=== PATIENT | female | born 1975 | race Caucasian/White ===

== ENCOUNTER 2019-06-08 20:19 | Inpatient (IN) ==
--- NOTE | 2019-06-08 21:03 | ERNOTE ---
<Ivanna Jeter - Last Filed: 06/08/19 23:18> Medical Problem HPI - Narrative Date of Service: 06/08/19 - General Chief Complaint: Nausea/Vomiting Time Seen by Provider: 06/08/19 21:02 Source: patient - Immun/Allergies/Home Medications Immunizations: IMMUNIZATION HX Immunizations Up to Date Yes History of Influenza Vaccine No Hx Pneumococcal Vaccination No Allergies/Adverse Reactions: Allergies No Known Allergies Allergy (Verified 11/09/18 09:28) codeine sulfate Allergy (Mild, Uncoded 10/01/18 15:01) nausea vomiting Home Medications: HOME MEDICATIONS pen needle, diabetic 32 gauge x 32" See Dose Instructions .ROUTE .MEDSUPPLY #100 ea 10/05/18 [Last Taken Unknown] insulin glargine (U-100) 100 unit/mL (3 mL) subcutaneous pen See Rx Instructions SUBCUT DAILY #15 ml 11/09/18 [Last Taken Unknown] insulin aspart (U-100) 100 unit/mL (3 mL) subcutaneous pen See Rx Instructions SUBCUT QACBREAK 30 Days #15 ml 04/25/19 [Last Taken Unknown] - History of Present History Narrative: Patient is a 43 years old female who presented complaining of nausea and vomiting since yesterday morning. Patient reports being a diabetic, on insulin, Lantus and NovoLog daily. Patient's reported that patient has been drinking daily for a year. Patient started to drink after her mother a year ago. Patient reports not being able to keep anything down since yesterday morning. Patient reports drinking alcohol to shot of vodka yesterday afternoon. Patient smoked a pack a day. She also reports having a wet cough for a week without much sputum. Patient reports that what came first is the coughing that recurs the vomiting. Date (Duration): 06/06/19 - nausea vomiting, & 1 week of cough Timing: constant Severity: moderate Review of Systems - Review of Systems Constitutional: Absent: fever, weakness, fatigue EYE: Absent: blurred vision ENT: Absent: ear pain Respiratory: Present: cough. Absent: shortness of breath Cardiology: Absent: chest pain Gastrointestinal/Abdominal: Present: nausea, vomiting. Absent: diarrhea Genitourinary: Present: frequency. Absent: dysuria, hematuria Musculoskeletal: Absent: back pain, muscle pain Skin: Absent: rash Neurological: Present: no symptoms reported Endocrine: Present: no symptoms reported Hematologic/Lymphatic: Present: no symptoms reported Psych: Present: no symptoms reported All Other Systems: All systems neg except as marked Medical History (Updated 06/08/19 @ 23:08 by Ivanna Jeter MD) Tobacco abuse (Chronic) Sebaceous cyst (Chronic) Diabetes (Chronic) Surgical History: Surgical History (Updated 10/01/18 @ 15:11 by Duane Shabazz LPN) delivery delivered Family History: Family History (Updated 06/08/19 @ 20:51 by Grisel Chang RN) Mother Mother Pancreatic cancer Social History: (Last Updated 11/13/18 @ 15:21 by Tino Huber MD) Social History: current occupational status: employed Highest education level completed: Associate degree: occupat Service: No Tobacco: Smoking Status: Current every day smoker tobacco type: cigarettes Smoking cigarettes per day: 20.0 Smoking packs per day: 1 Alcohol: alcohol intake: former Substance Use: substance use type: does not use Physical Exam - Physical Exam General Appearance: Present: alert, no apparent distress Head Exam: Present: normal inspection Eye Exam: Normal inspection: bilateral Ears, Nose, Throat: Present: normal ENT inspection Neck: Present: normal inspection Respiratory: Present: no respiratory distress. Absent: chest tenderness, respiratory distress Cardiovascular/Chest: Present: regular rate, rhythm Peripheral Pulses: N=norm/S=strong/W=weak/B=bound/A=absent: Radial (R): Normal, Radial (L): Normal, Femoral (R): Normal, Femoral (L): Normal Gastrointestinal/Abdominal: Present: normal bowel sounds Back Exam: Present: normal inspection Extremity Exam: Present: normal inspection Neurological Exam: Present: alert, oriented, normal mood/affect Skin Exam: Present: normal color Lymphatic Exam: Present: no adenopathy Progress - Vital Signs Vital Signs: Vital Signs 06/08/19 20:46 Temperature 36.8 C Pulse Rate 134 H Respiratory Rate 18 Blood Pressure 123/73 O2 Sat by Pulse Oximetry 95 - Progress/Reassessment Chief Complaint: Nausea/Vomiting Plan - Plan Plan: Patient is a 43 years old female who presented complaining of nausea, vomiting since yesterday morning. In the ED patient is found to acute kidney injury with a creatinine of 1.49, elevated blood glucose at 363, her anion gap is 38.1, CO2 is 6.3, and she has ketones in her urine. This is consistent with DKA patient was given 10 units of regular insulin, and 10 units of Lantus with a repeat blood glucose in 1 hour. She also received 3 L of normal saline IV she was also found to have a leukocytosis of 15.1 and an infiltrate in the right lower lobe, so she should receive a dose of ceftriaxone, 1 g IV and azithromycin 500 mg IV as well. Her potassium was found to be 5.4 however considering the need for hydration and an insulin the potassium should shift back into the cells so this does not need to be corrected at this time. Case was discussed with Dr. Llamas who accepted admission of the patient. However we are waiting for the results of the venous blood gas to decide the location of the patient admission. If the patient is found to be acidotic she would likely go to the ICU. Otherwise she will likely go to the floor. I also repeat order repeat CMP in 4 hours, and a blood glucose check every hour. 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 bleeding - Departure Disposition: Still a patient Condition: Stable Referrals: Tino Huber MD [Primary Care Provider] - <Jaime Pearson - Last Filed: 06/08/19 23:59> Medical Problem HPI - Immun/Allergies/Home Medications Immunizations: IMMUNIZATION HX Immunizations Up to Date Yes History of Influenza Vaccine No Hx Pneumococcal Vaccination No Medical History (Updated 06/08/19 @ 23:54 by Jaime Pearson MD) Tobacco abuse (Chronic) Sebaceous cyst (Chronic) Diabetes (Chronic) Surgical History: Surgical History (Updated 10/01/18 @ 15:11 by Duane Shabazz LPN) delivery delivered Family History: Family History (Updated 06/08/19 @ 20:51 by Grisel Chang RN) Mother Mother Pancreatic cancer Social History: (Last Updated 11/13/18 @ 15:21 by Tino Huber MD) Social History: current occupational status: employed Highest education level completed: Associate degree: occupat Service: No Tobacco: Smoking Status: Current every day smoker tobacco type: cigarettes Smoking cigarettes per day: 20.0 Smoking packs per day: 1 Alcohol: alcohol intake: former Substance Use: substance use type: does not use Progress - Vital Signs Vital Signs: Vital Signs 06/08/19 20:46 Temperature 36.8 C Pulse Rate 134 H Respiratory Rate 18 Blood Pressure 123/73 O2 Sat by Pulse Oximetry 95 - X-Ray X-Ray #1 X-Ray: chest Interpretation: Interp. by me X-ray Comments: Chest x-ray demonstrates? Perihilar infiltrate bilaterally. This was interpreted by the outgoing physician. She is forgotten intermitting called and gave me her dictation Plan - Plan Plan: I assumed care of this patient from the other physician at 1130. Will admit, place on insulin gtt, ICU While the patient's potassium is elevated, she is also significantly acidotic. As the acidosis corrects the potassium will shift back to intracellularly. She is almost certainly total body potassium depleted. Therefore I am continuing the potassium in her IV fluids
[2019-06-08] MEDS ORDERED: NORMAL SALINE 1,000 ML IV PRN (21:33)
[2019-06-08] MEDS ORDERED: ONDANSETRON HCL/PF 2 MG/ML VIAL IV ONE (21:33)
[2019-06-08 22:03] LABS: Hematocrit 50.7 % (37.0-47.0); Hemoglobin 17.1 gm/dL (12.5-16.0); Mean Cell Volume 95.7 fl (78-100); Mean Corpuscular Hemoglobin 32.3 pg (27-31); Mean Corpuscular Hgb Conc 33.7 g/dl (32-36); Mean Platelet Volume 8.6 fl (8-12.5); Neutrophil # 13.8 K/mm3 (1.3-6.0); Neutrophil % 89.3 % (42-75.0); Platelet Count 337 K/mm3 (150-450); Red Cell Distribution Width 13.7 % (11.5-14.0); White Blood Count 15.5 K/mm3 (4.0-10.5)
[2019-06-08 22:05] LABS: Urine Bilirubin 3 mg/dl (NEGATIVE); Urine Blood 50 /ul (NEGATIVE); Urine Ketone Large mg/dL (NEGATIVE); Urine Nitrite Negative (NEGATIVE); Urine Protein 100 mg/dL (NEGATIVE); Urine Specific Gravity >=1.030 SP.GR. (1.005-1.010); Urine Urobilinogen Normal (NORMAL); Urine pH 5.5 pH (5.0-7.0)
[2019-06-08 22:12] LABS: Albumin * 4.2 gm/dl (3.4-5.0); Anion Gap 38.1 mmol/L (6.8-13.8); BUN/Creatinine Ratio 12.8 (9.0-21.6); Bilirubin, Total 0.5 mg/dL (0.0-1.1); CRP 0.7 mg/dL (0.0-0.9); Ca. Corrected For Albumin 7.9 mg/dL (8.4-10.2); Calcium * 8.4 mg/dL (7.9-10.9); Carbon Dioxide 6.3 mmol/L (24-32.6); Potassium 5.4 mmol/L (3.4-4.6); Total Protein 9.1 gm/dL (6.2-8.2)
[2019-06-08 22:14] LABS: Urine Appearance Clear (CLEAR); Urine Bacteria None Seen; Urine Color Yellow; Urine Hyaline Cast 0-5 /LPF; Urine RBC TRACE /hpf (0-5); Urine WBC None Seen /hpf (0-5)
[2019-06-08] MEDS ORDERED: cefTRIAXone SODIUM 1,000 MG/100 ML BAG IV ONE (22:46)
[2019-06-08] MEDS ORDERED: INSULIN REGULAR, HUMAN 100 UNITS/ML VIAL IV ONE (22:50)
[2019-06-08] MEDS ORDERED: NORMAL SALINE 1,000 ML IV ONE ×2 (22:54→23:59)
[2019-06-08] MEDS ORDERED: NORMAL SALINE 2,000 ML IV PRN (22:55)
[2019-06-08] MEDS ORDERED: PANTOPRAZOLE SODIUM 40 MG/100 ML PIGGYBACK IV ONE (22:58)
[2019-06-09] MEDS: ONDANSETRON HCL/PF 2 MG/ML VIAL IV PRN ×2 (00:22→02:42)
[2019-06-09 00:28] LABS: Anion Gap 34.1 mmol/L (6.8-13.8); Carbon Dioxide 8.8 mmol/L (24-32.6); Potassium 4.9 mmol/L (3.4-4.6)
[2019-06-09] MEDS ORDERED: PANTOPRAZOLE SODIUM 40 MG/100 ML PIGGYBACK IV ONE (01:37)
[2019-06-09] MEDS ORDERED: ACETAMINOPHEN 325 MG TABLET PO ONE (01:38)
[2019-06-09] MEDS: POTASSIUM CHLORIDE 20 MEQ in NORMAL SALINE 1,000 ML IV SCH ×2 (02:04→07:26)
[2019-06-09] MEDS: INSULIN REGULAR, HUMAN 100 UNITS in NORMAL SALINE 100 ML IV PRN ×4 (02:17→21:48)
[2019-06-09 02:54] LABS: Anion Gap 28.2 mmol/L (6.8-13.8); BUN/Creatinine Ratio 14.3 (9.0-21.6); Calcium * 7.4 mg/dL (7.9-10.9); Carbon Dioxide 7.9 mmol/L (24-32.6); Estimated Creat Clear 59.1; Potassium 5.1 mmol/L (3.4-4.6)
[2019-06-09 04:56] LABS: Albumin * 3.2 gm/dl (3.4-5.0); Anion Gap 27.4 mmol/L (6.8-13.8); BUN/Creatinine Ratio 13.4 (9.0-21.6); Bilirubin, Total 0.4 mg/dL (0.0-1.1); Ca. Corrected For Albumin 7.4 mg/dL (8.4-10.2); Calcium * 7.1 mg/dL (7.9-10.9); Carbon Dioxide 10.4 mmol/L (24-32.6); Potassium 4.8 mmol/L (3.4-4.6); Total Protein 6.9 gm/dL (6.2-8.2)
[2019-06-09] MEDS ORDERED: DEXTROSE 50%-WATER 50 ML SYRG IV ONE (05:30)
[2019-06-09] MEDS: POTASSIUM CHLORIDE 20 MEQ in DEXTROSE 5%-0.5 NORMAL SALINE 990 ML IV SCH ×5 (05:39→21:49)
[2019-06-09 06:49] LABS: Albumin * 3.1 gm/dl (3.4-5.0); BUN/Creatinine Ratio 10.8 (9.0-21.6); Bilirubin, Total 0.3 mg/dL (0.0-1.1); Ca. Corrected For Albumin 7.9 mg/dL (8.4-10.2); Calcium * 7.5 mg/dL (7.9-10.9); Total Protein 6.6 gm/dL (6.2-8.2)
[2019-06-09] MEDS ORDERED: ACETAMINOPHEN 325 MG TABLET PO PRN (08:40)
[2019-06-09 08:45] LABS: Anion Gap 20.2 mmol/L (6.8-13.8); BUN/Creatinine Ratio 9.1 (9.0-21.6); Calcium * 7.4 mg/dL (7.9-10.9); Carbon Dioxide 15.5 mmol/L (24-32.6); Estimated Creat Clear 58.5; Potassium 4.7 mmol/L (3.4-4.6)
[2019-06-09] MEDS: FAMOTIDINE 20 MG in DEXTROSE 5 % IN WATER 100 ML IV SCH ×4 (09:21→21:10)
[2019-06-09] MEDS ORDERED: chlordiazePOXIDE HCL 25 MG CAPSULE PO PRN (10:28)
--- NOTE | 2019-06-09 10:34 | HP ---
Chief Complaint - Chief Complaint Date of Service: 06/09/19 Time of Service: 10:09 Chief Complaint: I have nausea vomiting and weakness since yesterday History of Present Illness: 43-year-old female with past medical history of type 2 diabetes, alcoholism, nicotine dependence, and depression was evaluated in our ER for ongoing nausea and vomiting and generalized weakness that started yesterday while the patient was in her home. Patient was diagnosed with diabetes 5 years ago and was hospitalized during that time for DKA, after treating her DKA she was discharged with treatment for her diabetes which she reports being compliant with and says that she has been increasing the dose of her insulin over the past few days in efforts to control her blood sugar but ever since she became ill and has been very difficult. Patient reports persistently high blood sugar readings with a upward trend despite significant amounts of insulin. However she admits that she drinks alcohol daily and that her dependence on alcohol has worsens ever since her mother a year ago. While commenting on this the patient became weepy and started crying and admitted to being depressed and said that she was formerly diagnosed with depression a few months ago but stopped taking her antidepressant. She agreed to go back on the medication during hospitalization and will follow up with her doctor after being discharged. She also reported a persistent productive cough over the past several days and thinks that she might have had a fever recently. Patient says she has not been feeling herself over the past few days. Medical History (Updated 06/08/19 @ 23:54 by Jaime Pearson MD) Tobacco abuse (Chronic) Sebaceous cyst (Chronic) Diabetes (Chronic) Surgical History: Surgical History (Updated 10/01/18 @ 15:11 by Duane Shabazz LPN) delivery delivered Family History: Family History (Updated 06/08/19 @ 20:51 by Grisel Chang RN) Mother Mother Pancreatic cancer Social History: (Last Reviewed 06/09/19 @ 03:19 by Karis Barron RN) Social History: current occupational status: employed Highest education level completed: Associate degree: occupat Service: No Tobacco: Smoking Status: Current every day smoker tobacco type: cigarettes Smoking cigarettes per day: 20.0 Smoking packs per day: 1 Alcohol: alcohol intake: former Substance Use: substance use type: does not use Peds Patient Hx - Developmental: No Pertinent Hx Peds Patient Hx - Medical: No Pertinent Hx Peds Patient Hx - Cardiac/Respiratory: No Pertinent Hx Peds Patient Hx - Surgical: No Surgical History Patient History - Cancer: No Hx of Cancer Review Of Systems (GEN) - Review of Systems Generalized/Overall Review: Present: Weakness, Chills, Fever EENTM: Present: No Symptoms Reported, Nose Congestion Respiratory: Present: Cough Cardiac: Present: No Symptoms Reported Abdominal: Present: Nausea, Vomiting Genitourinary: Present: No Symptoms Reported Musculoskeletal: Present: No Symptoms Reported Neurological: Present: No Symptoms Reported Skin: Present: No Symptoms Reported Endocrine: Present: No Symptoms Reported Immunizations: IMMUNIZATION HX Immunizations Up to Date Yes History of Influenza Vaccine No Hx Pneumococcal Vaccination No Allergies/Adverse Reactions: Allergies Allergy/AdvReac Type Severity Reaction Status Date / Time codeine sulfate Allergy Mild nausea Uncoded 10/01/18 15:01 vomiting Home Medications: HOME MEDICATIONS pen needle, diabetic 32 gauge x 5/32" See Dose Instructions .ROUTE .MEDSUPPLY #100 ea 10/05/18 [Last Taken Unknown] insulin glargine (U-100) 100 unit/mL (3 mL) subcutaneous pen See Rx Instructions SUBCUT DAILY #15 ml 11/09/18 [Last Taken Unknown] insulin aspart (U-100) 100 unit/mL (3 mL) subcutaneous pen See Rx Instructions SUBCUT QACBREAK 30 Days #15 ml 04/25/19 [Last Taken Unknown] Exam - Exam Vital Signs: Vital Signs - Last Taken Temp 36.7 C 06/09/19 07:05 Pulse 88 06/09/19 07:13 Resp 16 06/09/19 07:05 BP 95/54 06/09/19 07:05 Pulse Ox 98 06/09/19 07:05 Constitutional: Present: Alert, Oriented x3, Cooperative, Well developed, Well nourished, No distress ENT Exam: Present: normal ENT inspection, hearing grossly normal, pharynx normal, TMs normal, nasal congestion, nasal drainage Eye Exam: bilateral eye: normal inspection, PERRL, EOMI Neck: Present: non-tender, full range of motion, supple, normal inspection, trachea midline Back Exam: Present: normal inspection, no CVA tenderness, no vertebral tenderness Breasts: Present: Exam deferred Respiratory: Present: chest non-tender, lungs clear, normal breath sounds, no respiratory distress, no accessory muscle use Cardiovascular/Chest: Present: normal peripheral pulses, regular rate, rhythm, no chest tenderness, no edema, no gallop, no JVD, no murmur, no rub Peripheral Pulses: carotid (R): 3+, carotid (L): 3+, femoral (R): 3+, femoral (L): 3+, dorsalis-pedis (R): 3+, dorsalis-pedis (L): 3+ Abdomen: Present: Normal bowel sounds, soft, nontender, nondistended, no rebound tenderness, no hepatospenomegaly, no masses /Rectal: Present: Exam deferred Extremity: Present: normal range of motion, non-tender, normal inspection, no pedal edema, no calf tenderness, normal capillary refill Skin Exam: Present: normal color, warm/dry, no cyanosis Lymphatic: Present: no adenopathy Neurologic: Present: filling hauler weaving II-XII nml as tested, normal cerebellar test, no motor/sensory deficits, alert, normal mood/affect, oriented x 3 Appearance: Present: appropriate appearance, appropriate insight, neat, no memory impairment Eye contact: Present: cooperative, good eye contact, normal speech Thoughts: Present: normal thought pattern, no apparent hallucination Diagnostic Studies: Abnormal Lab Results 06/08/19 06/08/19 06/08/19 Range/Units 21:58 21:58 21:58 WBC 15.5 H (4.0-10.5) K/mm3 Hgb 17.1 H (12.5-16.0) gm/dL Hct 50.7 H (37.0-47.0) % MCH 32.3 H (27-31) pg Immature Gran % (Auto) 1.00 H (0.001-0.429) % Immature Gran # (Auto) 0.16 H (0.000-0.0310) K/mm3 Neutrophils % 89.3 H (42-75.0) % Lymphocytes % 4.8 L (20-51) % Neutrophils # 13.8 H (1.3-6.0) K/mm3 Lymphocytes # 0.74 L (1.5-3.5) k/mm3 VBG pH (7.32-7.43) Potassium 5.4 H D (3.4-4.6) mmol/L Chloride 93 L (97-106) mmol/L Carbon Dioxide 6.3 L (24-32.6) mmol/L Anion Gap 38.1 H (6.8-13.8) mmol/L Creatinine 1.49 H D (0.4-1.4) mg/dL Est GFR (Non-Af Amer) 41 L D (60-130) mL/min Random Glucose 363 H (70-110) mg/dL Lactic Acid, Venous 2.2 H* (0.4-2.0) mmol/L Calcium (7.9-10.9) mg/dL Calcium Adj for Albumin 7.9 L (8.4-10.2) mg/dL Alkaline Phosphatase 264 H (50-170) U/L Total Protein 9.1 H (6.2-8.2) gm/dL Albumin (3.4-5.0) gm/dl Urine Protein (NEGATIVE) mg/dL Urine Glucose (UA) (NEGATIVE) mg/dL Urine Blood (NEGATIVE) /ul Urine Bilirubin (NEGATIVE) mg/dl Prot Sulfosalicylic Acd (0) mg/dL Ur Epithelial Cells (0-5) /hpf Hyaline Casts (NONE) /LPF Serum Ketones (NEGATIVE) 06/08/19 06/08/19 06/08/19 Range/Units 21:58 23:12 23:15 WBC (4.0-10.5) K/mm3 Hgb (12.5-16.0) gm/dL Hct (37.0-47.0) % MCH (27-31) pg Immature Gran % (Auto) (0.001-0.429) % Immature Gran # (Auto) (0.000-0.0310) K/mm3 Neutrophils % (42-75.0) % Lymphocytes % (20-51) % Neutrophils # (1.3-6.0) K/mm3 Lymphocytes # (1.5-3.5) k/mm3 VBG pH 7.119 L* (7.32-7.43) Potassium (3.4-4.6) mmol/L Chloride (97-106) mmol/L Carbon Dioxide (24-32.6) mmol/L Anion Gap (6.8-13.8) mmol/L Creatinine (0.4-1.4) mg/dL Est GFR (Non-Af Amer) (60-130) mL/min Random Glucose (70-110) mg/dL Lactic Acid, Venous (0.4-2.0) mmol/L Calcium (7.9-10.9) mg/dL Calcium Adj for Albumin (8.4-10.2) mg/dL Alkaline Phosphatase (50-170) U/L Total Protein (6.2-8.2) gm/dL Albumin (3.4-5.0) gm/dl Urine Protein 100 H (NEGATIVE) mg/dL Urine Glucose (UA) 500 H (NEGATIVE) mg/dL Urine Blood 50 H (NEGATIVE) /ul Urine Bilirubin 3 H (NEGATIVE) mg/dl Prot Sulfosalicylic Acd 2+ H (0) mg/dL Ur Epithelial Cells 5-10 H (0-5) /hpf Hyaline Casts 0-5 H (NONE) /LPF Serum Ketones Positive - 40mg/dl H (NEGATIVE) 06/09/19 06/09/19 06/09/19 Range/Units 00:30 02:30 04:31 WBC (4.0-10.5) K/mm3 Hgb (12.5-16.0) gm/dL Hct (37.0-47.0) % MCH (27-31) pg Immature Gran % (Auto) (0.001-0.429) % Immature Gran # (Auto) (0.000-0.0310) K/mm3 Neutrophils % (42-75.0) % Lymphocytes % (20-51) % Neutrophils # (1.3-6.0) K/mm3 Lymphocytes # (1.5-3.5) k/mm3 VBG pH (7.32-7.43) Potassium 4.9 H 5.1 H 4.8 H (3.4-4.6) mmol/L Chloride (97-106) mmol/L Carbon Dioxide 8.8 L 7.9 L 10.4 L (24-32.6) mmol/L Anion Gap 34.1 H 28.2 H 27.4 H (6.8-13.8) mmol/L Creatinine (0.4-1.4) mg/dL Est GFR (Non-Af Amer) (60-130) mL/min Random Glucose 235 H D (70-110) mg/dL Lactic Acid, Venous (0.4-2.0) mmol/L Calcium 7.4 L 7.1 L (7.9-10.9) mg/dL Calcium Adj for Albumin 7.4 L (8.4-10.2) mg/dL Alkaline Phosphatase 186 H (50-170) U/L Total Protein (6.2-8.2) gm/dL Albumin 3.2 L (3.4-5.0) gm/dl Urine Protein (NEGATIVE) mg/dL Urine Glucose (UA) (NEGATIVE) mg/dL Urine Blood (NEGATIVE) /ul Urine Bilirubin (NEGATIVE) mg/dl Prot Sulfosalicylic Acd (0) mg/dL Ur Epithelial Cells (0-5) /hpf Hyaline Casts (NONE) /LPF Serum Ketones (NEGATIVE) 06/09/19 06/09/19 Range/Units 06:30 08:37 WBC (4.0-10.5) K/mm3 Hgb (12.5-16.0) gm/dL Hct (37.0-47.0) % MCH (27-31) pg Immature Gran % (Auto) (0.001-0.429) % Immature Gran # (Auto) (0.000-0.0310) K/mm3 Neutrophils % (42-75.0) % Lymphocytes % (20-51) % Neutrophils # (1.3-6.0) K/mm3 Lymphocytes # (1.5-3.5) k/mm3 VBG pH (7.32-7.43) Potassium 6.0 H D 4.7 H D (3.4-4.6) mmol/L Chloride (97-106) mmol/L Carbon Dioxide 13.0 L 15.5 L (24-32.6) mmol/L Anion Gap 24.0 H 20.2 H (6.8-13.8) mmol/L Creatinine (0.4-1.4) mg/dL Est GFR (Non-Af Amer) (60-130) mL/min Random Glucose 252 H D 211 H (70-110) mg/dL Lactic Acid, Venous (0.4-2.0) mmol/L Calcium 7.5 L 7.4 L (7.9-10.9) mg/dL Calcium Adj for Albumin 7.9 L (8.4-10.2) mg/dL Alkaline Phosphatase 188 H (50-170) U/L Total Protein (6.2-8.2) gm/dL Albumin 3.1 L (3.4-5.0) gm/dl Urine Protein (NEGATIVE) mg/dL Urine Glucose (UA) (NEGATIVE) mg/dL Urine Blood (NEGATIVE) /ul Urine Bilirubin (NEGATIVE) mg/dl Prot Sulfosalicylic Acd (0) mg/dL Ur Epithelial Cells (0-5) /hpf Hyaline Casts (NONE) /LPF Serum Ketones (NEGATIVE) Laboratory Results WBC 15.5 K/mm3 (4.0-10.5) H 06/08/19 21:58 RBC 5.30 M/mm3 (4.2-5.4) 06/08/19 21:58 Hgb 17.1 gm/dL (12.5-16.0) H 06/08/19 21:58 Hct 50.7 % (37.0-47.0) H 06/08/19 21:58 MCV 95.7 fl (78-100) 06/08/19 21:58 MCH 32.3 pg (27-31) H 06/08/19 21:58 MCHC 33.7 g/dl (32-36) 06/08/19 21:58 RDW 13.7 % (11.5-14.0) 06/08/19 21:58 Plt Count 337 K/mm3 (150-450) 06/08/19 21:58 MPV 8.6 fl (8-12.5) 06/08/19 21:58 Immature Gran % (Auto) 1.00 % (0.001-0.429) H 06/08/19 21:58 Immature Gran # (Auto) 0.16 K/mm3 (0.000-0.0310) H 06/08/19 21:58 89.3 % (42-75.0) H 06/08/19 21:58 4.8 % (20-51) L 06/08/19 21:58 4.6 % (0.0-9) 06/08/19 21:58 0.0 % (0.0-3.0) 06/08/19 21:58 0.3 % (0.0-1.0) 06/08/19 21:58 Nucleated RBC % 0.0 k/mm3 (0-1) 06/08/19 21:58 13.8 K/mm3 (1.3-6.0) H 06/08/19 21:58 0.74 k/mm3 (1.5-3.5) L 06/08/19 21:58 0.7 k/mm3 (0.0-1.0) 06/08/19 21:58 0.0 k/mm3 (0.0-0.7) 06/08/19 21:58 Absolute Basophils 0.1 k/mm3 (0.0-0.1) 06/08/19 21:58 VBG pH 7.119 (7.32-7.43) L* 06/08/19 23:15 Sodium 136 mmol/L (132-142) 06/09/19 08:37 138 mmol/L (130-142) 06/09/19 08:37 Potassium 4.7 mmol/L (3.4-4.6) H D 06/09/19 08:37 Chloride 105 mmol/L (97-106) 06/09/19 08:37 Carbon Dioxide 15.5 mmol/L (24-32.6) L 06/09/19 08:37 20.2 mmol/L (6.8-13.8) H 06/09/19 08:37 BUN 9 mg/dL (3-23) 06/09/19 08:37 0.99 mg/dL (0.4-1.4) 06/09/19 08:37 Est GFR (Non-Af Amer) 65 mL/min (60-130) 06/09/19 08:37 9.1 (9.0-21.6) 06/09/19 08:37 211 mg/dL (70-110) H 06/09/19 08:37 1.5 mmol/L (0.4-2.0) 06/09/19 00:24 Calcium 7.4 mg/dL (7.9-10.9) L 06/09/19 08:37 Calcium Adj for Albumin 7.9 mg/dL (8.4-10.2) L 06/09/19 06:30 0.3 mg/dL (0.0-1.1) 06/09/19 06:30 AST 25 U/L (0-48) 06/09/19 06:30 ALT 30 U/L (19-67) 06/09/19 06:30 188 U/L (50-170) H 06/09/19 06:30 C-Reactive Prot, Quant 0.7 mg/dL (0.0-0.9) 06/08/19 21:58 6.6 gm/dL (6.2-8.2) 06/09/19 06:30 3.1 gm/dl (3.4-5.0) L 06/09/19 06:30 185 U/L (73-393) 06/08/19 21:58 Yellow 06/08/19 21:58 Clear (CLEAR) 06/08/19 21:58 5.5 pH (5.0-7.0) 06/08/19 21:58 Ur Specific [place] >=1.030 SP.GR. (1.005-1.010) 06/08/19 21:58 100 mg/dL (NEGATIVE) H 06/08/19 21:58 500 mg/dL (NEGATIVE) H 06/08/19 21:58 Large mg/dL (NEGATIVE) 06/08/19 21:58 50 /ul (NEGATIVE) H 06/08/19 21:58 Negative (NEGATIVE) 06/08/19 21:58 3 mg/dl (NEGATIVE) H 06/08/19 21:58 Negative (NEGATIVE) 06/08/19 21:58 Prot Sulfosalicylic Acd 2+ mg/dL (0) H 06/08/19 21:58 Normal EU/dl (NORMAL) 06/08/19 21:58 Ur Leukocyte Esterase Negative /ul (NEGATIVE) 06/08/19 21:58 Trace /hpf (0-5) 06/08/19 21:58 None seen /hpf (0-5) 06/08/19 21:58 Ur Epithelial Cells 5-10 /hpf (0-5) H 06/08/19 21:58 None seen (NONE) 06/08/19 21:58 Hyaline Casts 0-5 /LPF (NONE) H 06/08/19 21:58 No culture indicated 06/08/19 21:58 Ethyl Alcohol Less than 3.0 mg/dL (0.0-10.0) 06/08/19 22:30 Positive - 40mg/dl (NEGATIVE) H 06/08/19 23:12 Assessment/Plan - Narrative Narrative: Patient was evaluated and medical chart was reviewed and decision to admit to inpatient special care unit with a diagnosis of diabetic ketoacidosis, acute gastroenteritis, and suspected bronchopneumonia was made. We will treat patient with a continuous IV insulin infusion, IV fluids, and potassium replacement to avoid hypokalemia. Labs on admission demonstrated a leukocytosis and elevated neutrophils indicating an ongoing infection and given the patient's clinical presentation, we will cover the patient with IV antibiotics. Patient will also be covered with medications for possible alcohol withdrawal given her dependence on alcohol as well as a nicotine patch for her nicotine dependence. We are monitoring her on telemetry and following her electrolytes and anion gap with serial BMPs, will also have hourly Accu-Cheks to monitor blood sugars and so far the patient appears to be improving. Her blood sugars have come down and her anion gap is closing. We will continue to monitor to eventually take her off the insulin drip and switch to subcutaneous insulin and start diet. In the meantime patient has stable vitals and denies any new symptoms. Patient will also be restarted on her antidepressant to treat her ongoing depression. - Assessment/Plan (1) Gastritis Problem: Acute Qualifiers: Gastritis type: alcoholic Chronicity: chronic Gastritis bleeding: without bleeding Qualified Code(s): K29.20 - Alcoholic gastritis without bleeding (2) Nausea Problem: Acute (3) Acute kidney injury Problem: Acute (4) Dehydration Problem: Acute (5) DKA (diabetic ketoacidosis) Problem: Acute Qualifiers: Diabetes mellitus type: type 1 Diabetes mellitus complication detail: without coma Qualified Code(s): E10.10 - Type 1 diabetes mellitus with ketoacidosis without coma (6) Alcohol abuse Problem: Chronic (7) Depression Problem: Chronic (8) Nicotine dependence Problem: Acute
[2019-06-09 10:48] LABS: Anion Gap 16.7 mmol/L (6.8-13.8); BUN/Creatinine Ratio 9.5 (9.0-21.6); Calcium * 7.5 mg/dL (7.9-10.9); Carbon Dioxide 18.9 mmol/L (24-32.6); Potassium 4.6 mmol/L (3.4-4.6)
[2019-06-09] MEDS ORDERED: AZITHROMYCIN 500 MG in DEXTROSE 5 % IN WATER 250 ML IV ONE ×2 (12:00)
[2019-06-09] MEDS: THIAMINE HCL 100 MG/ML VIAL IM SCH (12:07)
[2019-06-09] MEDS: NICOTINE 21 MG PATC TD SCH (12:07)
[2019-06-09] MEDS: FLUoxetine HCL 20 MG CAPSULE PO SCH (12:07)
[2019-06-09 12:44] LABS: Anion Gap 18.2 mmol/L (6.8-13.8); BUN/Creatinine Ratio 8.8 (9.0-21.6); Calcium * 7.3 mg/dL (7.9-10.9); Carbon Dioxide 19.1 mmol/L (24-32.6); Estimated Creat Clear 72.5; Potassium 4.3 mmol/L (3.4-4.6)
[2019-06-09 15:02] LABS: Anion Gap 15.8 mmol/L (6.8-13.8); Calcium * 7.5 mg/dL (7.9-10.9); Carbon Dioxide 19.6 mmol/L (24-32.6); Potassium 4.4 mmol/L (3.4-4.6)
[2019-06-09 17:26] LABS: Anion Gap 16.7 mmol/L (6.8-13.8); BUN/Creatinine Ratio 5.9 (9.0-21.6); Calcium * 7.8 mg/dL (7.9-10.9); Carbon Dioxide 19.3 mmol/L (24-32.6); Estimated Creat Clear 68.2
[2019-06-09 19:12] LABS: Anion Gap 14.8 mmol/L (6.8-13.8); BUN/Creatinine Ratio 4.9 (9.0-21.6); Calcium * 7.8 mg/dL (7.9-10.9); Carbon Dioxide 20.9 mmol/L (24-32.6); Estimated Creat Clear 70.7; Potassium 3.7 mmol/L (3.4-4.6)
[2019-06-09 21:19] LABS: Anion Gap 16.1 mmol/L (6.8-13.8); BUN/Creatinine Ratio 5.2 (9.0-21.6); Calcium * 7.6 mg/dL (7.9-10.9); Carbon Dioxide 21.7 mmol/L (24-32.6); Estimated Creat Clear 75.3; Potassium 3.8 mmol/L (3.4-4.6)
[2019-06-09 21:29] LABS: Urine Bilirubin Negative (NEGATIVE); Urine Ketone Negative (NEGATIVE); Urine Nitrite Negative (NEGATIVE); Urine Protein Negative (NEGATIVE); Urine Specific Gravity <=1.005 SP.GR. (1.005-1.010); Urine Urobilinogen Normal (NORMAL)
[2019-06-09 21:38] LABS: Urine Amorphous Sediment Few - 1+ (NONE-FEW); Urine Appearance Clear (CLEAR); Urine Bacteria None Seen; Urine Blood 5 /ul (NEGATIVE); Urine Color Pale Yellow; Urine RBC None Seen /hpf (0-5); Urine WBC None Seen /hpf (0-5)
[2019-06-10] MEDS ORDERED: 0.5 NORMAL SALINE 1,000 ML IV PRN (00:33)
[2019-06-10] MEDS ORDERED: DEXTROSE 10 % IN WATER 1,000 ML IV SCH (00:45)
[2019-06-10 01:18] LABS: BUN/Creatinine Ratio 4.5 (9.0-21.6); Calcium * 7.5 mg/dL (7.9-10.9); Carbon Dioxide 21.6 mmol/L (24-32.6); Estimated Creat Clear 86.5; Potassium 3.6 mmol/L (3.4-4.6)
[2019-06-10] MEDS ORDERED: INSULIN GLARGINE,HUM.REC.ANLOG 100 UNITS/ML VIAL SC ONE (02:13)
[2019-06-10] MEDS ORDERED: DEXTROSE 5%-0.5 NORMAL SALINE 1,000 ML IV PRN (04:18)
[2019-06-10] MEDS ORDERED: INSULIN REGULAR, HUMAN 100 UNITS/ML VIAL SC ONE ×2 (04:24→05:59)
[2019-06-10 05:09] LABS: Hematocrit 39.5 % (37.0-47.0); Hemoglobin 13.7 gm/dL (12.5-16.0); Mean Cell Volume 92.3 fl (78-100); Mean Corpuscular Hgb Conc 34.7 g/dl (32-36); Mean Platelet Volume 8.6 fl (8-12.5); Neutrophil # 3.1 K/mm3 (1.3-6.0); Neutrophil % 63.3 % (42-75.0); Platelet Count 154 K/mm3 (150-450); Red Blood Count 4.28 M/mm3 (4.2-5.4); Red Cell Distribution Width 13.9 % (11.5-14.0); White Blood Count 4.8 K/mm3 (4.0-10.5)
[2019-06-10 05:25] LABS: Anion Gap 16.1 mmol/L (6.8-13.8); BUN/Creatinine Ratio 2.4 (9.0-21.6); Calcium * 7.4 mg/dL (7.9-10.9); Carbon Dioxide 20.6 mmol/L (24-32.6); Potassium 3.7 mmol/L (3.4-4.6)
[2019-06-10] MEDS ORDERED: NORMAL SALINE 1,000 ML IV PRN (06:04)
[2019-06-10] MEDS: POTASSIUM CHLORIDE 20 MEQ in DEXTROSE 5%-0.5 NORMAL SALINE 990 ML IV SCH (06:24)
[2019-06-10] MEDS ORDERED: AZITHROMYCIN 250 MG in DEXTROSE 5 % IN WATER 250 ML IV SCH ×2 (07:00)
[2019-06-10] MEDS ORDERED: INSULIN LISPRO 100 UNITS/ML VIAL SC SCH ×2 (07:00→12:00)
[2019-06-10] MEDS: THIAMINE HCL 100 MG/ML VIAL IM SCH (08:00)
[2019-06-10] MEDS: FAMOTIDINE 20 MG in DEXTROSE 5 % IN WATER 100 ML IV SCH ×2 (08:05)
[2019-06-10] MEDS: FLUoxetine HCL 20 MG CAPSULE PO SCH ×2 (08:06→10:35)
[2019-06-10] MEDS ORDERED: THIAMINE HCL 100 MG TABLET PO SCH (09:00)
[2019-06-10 09:24] LABS: Hemoglobin A1C 8.2 % (4.00-6.0)
[2019-06-10 09:30] LABS: Anion Gap 15.7 mmol/L (6.8-13.8); BUN/Creatinine Ratio 2.8 (9.0-21.6); Calcium * 7.6 mg/dL (7.9-10.9); Carbon Dioxide 20.7 mmol/L (24-32.6); Estimated Creat Clear 80.5; Potassium 3.4 mmol/L (3.4-4.6)
[2019-06-10] MEDS: NICOTINE 21 MG PATC TD SCH (10:35)
[2019-06-10] MEDS ORDERED: LEVOFLOXACIN 750 MG TABLET PO SCH (11:00)
--- NOTE | 2019-06-10 12:30 | DS ---
(1) Acute kidney injury Problem: Resolved (2) DKA (diabetic ketoacidosis) Problem: Resolved Qualifiers: Diabetes mellitus type: type 1 Diabetes mellitus complication detail: without coma Qualified Code(s): E10.10 - Type 1 diabetes mellitus with ketoacidosis without coma (3) Right lower lobe pneumonia Problem: Acute Qualifiers: Pneumonia type: due to unspecified organism Qualified Code(s): J18.1 - Lobar pneumonia, unspecified organism (4) Alcohol dependence Problem: Chronic Qualifiers: Substance use status: uncomplicated (5) Depression Problem: Chronic Qualifiers: Depression Type: major depressive disorder Major depression recurrence: recurrent Active/Remission status: currently active Major depression episode severity: moderate Qualified Code(s): F33.1 - Major depressive disorder, recurrent, moderate (6) Nicotine dependence Problem: Chronic Qualifiers: Nicotine product type: cigarettes Substance use status: uncomplicated Qualified Code(s): F17.210 - Nicotine dependence, cigarettes, uncomplicated (7) Anxiety Problem: Chronic (8) Insulin dependent type 2 diabetes mellitus Problem: Chronic Date of Discharge:: 06/10/19 Description of Stay: This patient was initially admitted to the ICU where she was followed very closely, both clinically and with appropriate lab work. She was diagnosed with pneumonia and was given IV antibiotics. Her diabetic ketoacidosis was specifically treated with IV fluids and IV insulin. Her potassium was added to her IV fluids. She improved. She has now eating and walking in the halls. She is alert and oriented in no distress whatsoever, except that she is intermittently tearful when she discusses her alcohol use. We recommended tobacco cessation. We more specifically discussed her alcohol abuse which she has been doing for 1 year. She drinks 1/2 pint of vodka daily. She declined any medication help from me. She is going to try to avoid alcohol completely on her own. We will recheck this again at her follow-up appointment. Her lab work was as follows: White blood count dropped from 15.5-4.8. Hemoglobin dropped from 17.1-13.7. Her venous pH on admission was 7.119. Her ABGs were today PCO2 26.5, bicarb 16.5, total CO2 16.9, base excess -7, and pH 7.40. (Fully compensated metabolic acidosis). Her see OT change from 6.3 on admission to 20.7. Her anion gap changed from 38.1 on admission to 15.7. Her calcium remains slightly low at 7.6. Her potassium changed from 5.4 on admission to 3.4. Her albumin was consistently slightly low. She is doing much better clinically and by lab evaluation. Her blood sugars were not as well stabilized as I would like prior to discharge, however in spite of a lengthy discussion, she refuses to remain in the hospital and we will ask her to sign an AGAINST MEDICAL ADVICE form. Her prognosis is at best fair. She stopped Prozac on her own, because she did not like how it made her feel. Procedures Performed: none Results and Findings: Pending Mircobiology Results 06/08/19 23:39 Blood Blood Culture - Preliminary NO GROWTH 24 HOURS Lab Pending Results 06/08/19 21:58: WBC 15.5 H, RBC 5.30, Hgb 17.1 H, Hct 50.7 H, MCV 95.7, MCH 32.3 H, MCHC 33.7, RDW 13.7, Plt Count 337, MPV 8.6, Immature Gran % (Auto) 1.00 H, Immature Gran # (Auto) 0.16 H, Neutrophils % 89.3 H, Lymphocytes % 4.8 L, Monocytes % 4.6, Eosinophils % 0.0, Basophils % 0.3, Nucleated RBC % 0.0, Neutrophils # 13.8 H, Lymphocytes # 0.74 L, Monocytes # 0.7, Eosinophils # 0.0, Absolute Basophils 0.1 06/08/19 21:58: Sodium 132, Plasma Sodium 136, Potassium 5.4 H D, Chloride 93 L, Carbon Dioxide 6.3 L, Anion Gap 38.1 H, BUN 19 D, Creatinine 1.49 H D, Est GFR (Non-Af Amer) 41 L D, BUN/Creatinine Ratio 12.8, Random Glucose 363 H, Calcium 8.4, Calcium Adj for Albumin 7.9 L, Total Bilirubin 0.5, AST 38, ALT 47, Alkaline Phosphatase 264 H, C-Reactive Prot, Quant 0.7, Total Protein 9.1 H, Albumin 4.2, Lipase 185 06/08/19 21:58: Lactic Acid, Venous 2.2 H* 06/08/19 21:58: Urine Color Yellow, Urine Appearance Clear, Urine pH 5.5, Ur Specific Hepler >=1.030, Urine Protein 100 H, Urine Glucose (UA) 500 H, Urine Ketones Large, Urine Blood 50 H, Urine Nitrate Negative, Urine Bilirubin 3 H, Urine Ictotest Negative, Prot Sulfosalicylic Acd 2+ H, Urine Urobilinogen Normal, Ur Leukocyte Esterase Negative, Urine RBC Trace, Urine WBC None seen, Ur Epithelial Cells 5-10 H, Urine Bacteria None seen, Hyaline Casts 0-5 H, Urine Culture Comments No culture indicated 06/08/19 22:30: Ethyl Alcohol Less than 3.0 06/08/19 23:12: Serum Ketones Positive - 40mg/dl H 06/08/19 23:15: VBG pH 7.119 L* 06/09/19 00:24: Lactic Acid, Venous 1.5 06/09/19 00:30: Sodium 135, Potassium 4.9 H, Chloride 97, Carbon Dioxide 8.8 L, Anion Gap 34.1 H 06/09/19 02:30: Sodium 132, Plasma Sodium 134, Potassium 5.1 H, Chloride 101, Carbon Dioxide 7.9 L, Anion Gap 28.2 H, BUN 14, Creatinine 0.98, Est GFR (Non-Af Amer) 66 D, BUN/Creatinine Ratio 14.3, Random Glucose 235 H D, Calcium 7.4 L 06/09/19 04:31: Sodium 137, Plasma Sodium 137, Potassium 4.8 H, Chloride 104, Carbon Dioxide 10.4 L, Anion Gap 27.4 H, BUN 13, Creatinine 0.97, Est GFR (Non- Af Amer) 67, BUN/Creatinine Ratio 13.4, Random Glucose 100 D, Calcium 7.1 L, Calcium Adj for Albumin 7.4 L, Total Bilirubin 0.4, AST 28, ALT 34, Alkaline Phosphatase 186 H, Total Protein 6.9, Albumin 3.2 L 06/09/19 06:30: Sodium 132, Plasma Sodium 134, Potassium 6.0 H D, Chloride 101, Carbon Dioxide 13.0 L, Anion Gap 24.0 H, BUN 10, Creatinine 0.93, Est GFR (Non- Af Amer) 70, BUN/Creatinine Ratio 10.8, Random Glucose 252 H D, Calcium 7.5 L, Calcium Adj for Albumin 7.9 L, Total Bilirubin 0.3, AST 25, ALT 30, Alkaline Phosphatase 188 H, Total Protein 6.6, Albumin 3.1 L 06/09/19 08:37: Sodium 136, Plasma Sodium 138, Potassium 4.7 H D, Chloride 105, Carbon Dioxide 15.5 L, Anion Gap 20.2 H, BUN 9, Creatinine 0.99, Est GFR (Non-Af Amer) 65, BUN/Creatinine Ratio 9.1, Random Glucose 211 H, Calcium 7.4 L 06/09/19 10:39: Sodium 136, Plasma Sodium 138, Potassium 4.6, Chloride 105, Carbon Dioxide 18.9 L, Anion Gap 16.7 H, BUN 8, Creatinine 0.84, Est GFR (Non-Af Amer) 79 D, BUN/Creatinine Ratio 9.5, Random Glucose 200 H, Calcium 7.5 L 06/09/19 12:35: Sodium 137, Plasma Sodium 139, Potassium 4.3, Chloride 104, Carbon Dioxide 19.1 L, Anion Gap 18.2 H, BUN 7, Creatinine 0.80, Est GFR (Non-Af Amer) 84, BUN/Creatinine Ratio 8.8 L, Random Glucose 205 H, Calcium 7.3 L 06/09/19 14:53: Sodium 137, Plasma Sodium 139, Potassium 4.4, Chloride 106, Carbon Dioxide 19.6 L, Anion Gap 15.8 H, BUN 5, Creatinine 0.84, Est GFR (Non-Af Amer) 79, BUN/Creatinine Ratio 6.0 L, Random Glucose 249 H, Calcium 7.5 L 06/09/19 17:13: Sodium 139, Plasma Sodium 140, Potassium 4.0, Chloride 107 H, Carbon Dioxide 19.3 L, Anion Gap 16.7 H, BUN 5, Creatinine 0.85, Est GFR (Non-Af Amer) 78, BUN/Creatinine Ratio 5.9 L, Random Glucose 157 H D, Calcium 7.8 L 06/09/19 19:01: Sodium 141, Plasma Sodium 140, Potassium 3.7, Chloride 109 H, Carbon Dioxide 20.9 L, Anion Gap 14.8 H, BUN 4, Creatinine 0.82, Est GFR (Non-Af Amer) 81, BUN/Creatinine Ratio 4.9 L, Random Glucose 60 L D, Calcium 7.8 L 06/09/19 21:00: Sodium 141, Plasma Sodium 141, Potassium 3.8, Chloride 107 H, Carbon Dioxide 21.7 L, Anion Gap 16.1 H, BUN 4, Creatinine 0.77, Est GFR (Non-Af Amer) 87, BUN/Creatinine Ratio 5.2 L, Random Glucose 109 D, Calcium 7.6 L 06/09/19 21:17: Urine Color Pale yellow, Urine Appearance Clear, Urine pH 6.0, Ur Specific Hepler <=1.005, Urine Protein Negative, Urine Glucose (UA) Negative, Urine Ketones Negative, Urine Blood 5 H, Urine Nitrate Negative, Urine Bilirubin Negative, Urine Urobilinogen Normal, Ur Leukocyte Esterase Negative, Urine RBC None seen, Urine WBC None seen, Ur Epithelial Cells 0-5, Amorphous Sediment Few - 1+, Urine Bacteria None seen 06/10/19 00:27: pCO2 26.5 L, pO2 91.4, HCO3 16.1 L, Total CO2 16.9 L, Base Excess -7.0 L, ABG pH 7.40, ABG O2 Sat (Measured) 97.2 06/10/19 01:00: Sodium 140, Plasma Sodium 140, Potassium 3.6, Chloride 109 H, Carbon Dioxide 21.6 L, Anion Gap 13.0, BUN 3, Creatinine 0.67, Est GFR (Non-Af Amer) 103, BUN/Creatinine Ratio 4.5 L, Random Glucose 98, Calcium 7.5 L 06/10/19 05:00: Sodium 140, Plasma Sodium 144 H, Potassium 3.7, Chloride 107 H, Carbon Dioxide 20.6 L, Anion Gap 16.1 H, BUN 2 L, Creatinine 0.84, Est GFR (Non- Af Amer) 79 D, BUN/Creatinine Ratio 2.4 L, Random Glucose 329 H D, Calcium 7.4 L 06/10/19 05:00: Mean Blood Glucose 187, Hemoglobin A1c 8.2 H 06/10/19 05:10: WBC 4.8 D, RBC 4.28, Hgb 13.7, Hct 39.5, MCV 92.3, MCH 32.0 H, MCHC 34.7, RDW 13.9, Plt Count 154, MPV 8.6, Immature Gran % (Auto) 0.60 H, Immature Gran # (Auto) 0.03, Neutrophils % 63.3, Lymphocytes % 25.5, Monocytes % 10.0 H, Eosinophils % 0.4, Basophils % 0.2, Nucleated RBC % 0.0, Neutrophils # 3.1, Lymphocytes # 1.23 L, Monocytes # 0.5, Eosinophils # 0.0, Absolute Basophils 0.0 06/10/19 09:10: Sodium 144 H, Plasma Sodium 143 H, Potassium 3.4, Chloride 111 H, Carbon Dioxide 20.7 L, Anion Gap 15.7 H, BUN 2 L, Creatinine 0.72, Est GFR (Non-Af Amer) 94, BUN/Creatinine Ratio 2.8 L, Random Glucose 59 L D, Calcium 7.6 L 06/10/19 09:59: Random Glucose 84 D Discharge Location: Home Disposition: Home self-care Condition: Fair Discharge Activity: Activity as tolerated Discharge Diet: Consistent carbs Referrals: Tino Huber MD [Primary Care Provider] - Additional Patient Instructions (free text): Please call if you have problems or questions. Strictly avoid any alcohol. Follow-up with me in the office in 1 week. Prescriptions (Any new or edited meds): Glucagon,Human Recombinant [Glucagon Emergency Kit] 1 mg IJ ONCE PRN #1 kit PRN Reason: Hypoglycemia Complete Home Medications List: Complete Home Medication List: pen needle, diabetic 32 gauge x " See Dose Instructions .ROUTE .MEDSUPPLY #100 ea 10/05/18 Acetaminophen [Tylenol] 650 mg PO Q6H PRN tablet 06/10/19 Glucagon,Human Recombinant [Glucagon Emergency Kit] 1 mg IJ ONCE PRN #1 kit 06/10/19 Insulin Glargine,Hum.rec.anlog [Lantus] 23 units SC HS #7 vial 06/10/19 Insulin Lispro [Humalog] See Protocol SC ACINS #6 vial 06/10/19 Levofloxacin [Levaquin] 750 mg PO DAILY@1100 #3 tab 06/10/19 Sertraline HCl [Zoloft] 50 mg PO DAILY #30 tab 06/10/19 Thiamine HCl [Vitamin B-1] 100 mg PO DAILY #30 tab 06/10/19
[2019-06-10 13:44] VITALS: BP 146/90
[2019-06-10] MEDS ORDERED: INSULIN GLARGINE,HUM.REC.ANLOG 100 UNITS/ML VIAL SC SCH ×2 (21:00)
== END 2019-06-10 13:45 | disposition left against medical advice (07) | DRG 637 ==
LOC: ER 20:19 → MS 22:58 → SCU 23:58
PROVIDERS: ADMIT Family Medicine; ATTEND Allergy & Immunology
DX: J18.1 Lobar pneumonia, unspecified organism; F17.210 Nicotine dependence, cigarettes, uncomplicated; F41.9 Anxiety disorder, unspecified; E10.10 Type 1 diabetes mellitus with ketoacidosis without coma; E86.0 Dehydration; Z79.4 Long term (current) use of insulin; F33.1 Major depressive disorder, recurrent, moderate; F10.20 Alcohol dependence, uncomplicated; N17.9 Acute kidney failure, unspecified; K29.20 Alcoholic gastritis without bleeding
CPT/HCPCS: 36415; 36600; 71020; 71046; 80048; 80051; 80053; 80320; 81001; 82009; 82800; 82803; 82947; 83036; 83605; 83690; 85025; 86140; 87040; 93005; 96361; 96374; 96375; 99285; G0481; J2405